=== PATIENT | male | born 1990 | race Caucasian/White ===

== ENCOUNTER → 2024-02-20 12:15 | Outpatient (REF) | payer BC, SELFPAY ==
[2024-02-20 16:19] LABS: % Basophils 1.3 % (0-2); % Eosinophils 3.7 % (0-6); % Immature Granulocytes 0.3 % (0-0.5); % Lymphocytes 31.3 % (20.5-51.1); % Monocytes 9.1 % (1.7-9.3); % Neutrophils 54.3 % (42.2-75.2); Absolute Basophils 0.1 10^3/uL (0-0.2); Absolute Eosinophils 0.2 10^3/uL (0-0.7); Absolute Lymphocytes 1.9 10^3/uL (1.2-3.4); Absolute Monocytes 0.5 10^3/uL (0.1-0.6); Absolute Neutrophils 3.2 10^3/uL (1.4-6.5); Hematocrit 39.1 % (39.0-52.0); Hemoglobin 12.7 g/dL (13.0-18.0); Mean Corp Hgb Conc. 32.5 g/dL (33.0-37.0); Mean Corpuscular Volume 89.3 fL (80.0-94.0); Mean Platelet Volume 10.3 fL (7.4-10.4); Nucleated Red Blood Cells % 0 % (-); Platelet Count 217 10^3/uL (130-400); Red Blood Cell Count 4.38 10^6/uL (4.70-6.10); Red Cell Dist. Width 14.6 % (11.5-14.5)
[2024-02-20 16:29] LABS: ALT (SGPT) 28 U/L (0-50); AST (SGOT) 30 U/L (17-59); Albumin 4.5 g/dl (3.5-5.0); Alkaline Phosphatase 57 U/L (38-126); Blood Urea Nitrogen 17 mg/dl (9-20); Calcium 9.5 mg/dl (8.4-10.2); Carbon Dioxide 30 mmol/L (22-30); Chloride 102 mmol/L (98-107); Glucose 90 mg/dl (70-99); HDL Cholesterol 63 mg/dl; LDL Cholesterol, Calculated 143 mg/dl; Potassium 4.3 mmol/L (3.5-5.1); Sodium 137 mmol/L (135-145); Total Bilirubin 0.5 mg/dl (0.2-1.3); Total Cholesterol 226 mg/dl (50-199); Triglyceride 100 mg/dl (10-149); Very Low Density Lipoprotein 20 mg/dl (0-30); eGFR > 60.00
[2024-02-20 17:00] LABS: TSH Reflex To Free T4 1.47 uIU/ml (0.47-4.68)
== END ==
LOC: HWLAB 12:15
PROVIDERS: ATTENDING PHYSICIAN Internal Medicine
DX: R53.83 Other fatigue (principal); Z00.01 Encounter for general adult medical examination with abnormal findings
CPT/HCPCS: 36415; 80053; 80061; 84443; 85025

== ENCOUNTER 2025-03-10 19:02 | Emergency (ER) | payer BC, SELFPAY ==
[2025-03-10 19:10] VITALS: BP 143/80
--- NOTE | 2025-03-10 22:32 | ED.GENMED ---
History of Present Illness
General
Chief Complaint: Rabies
Source: patient
Exam Limitations: none
Time Seen by Provider: 03/10/25 21:16
Nursing documentation reviewed up to this point in time: agreed with
History of Present Illness
History of Present Illness:
SEE mdm
Review of Systems
Review of Systems
Allergies reviewed?: Yes
All Other Systems: Not applicable
Phy Exam
Physical Exam
Physical Exam:
GENERAL: Alert , in no apparent distress
EYE: pupils equal and reactive
NECK: Supple
ENT: o/P MILD EERYTHEMA, mmm.
CARDIAC: Regular rate and rhythm .
LUNGS: Clear breath sounds bilaterally, no acute respiratory distress, no wheezes/rales/rhonchi
ABDOMEN: Soft, without focal tenderness, no r/g, no cvat, normal bowel sounds
NEUROLOGICAL: Alert and oriented, no focal neuro deficits
SKIN: Warm and dry, skin intact.
PSYCH: Normal and appropriate interaction.
Course
Orders/Labs/Results
Orders:
Orders
03/10/25 22:26
Rabies Immune Globulin/Pf [HyperRAB] 1,932 unit IM NOW STA
03/10/25 22:30
Rabies Vaccine (Pcec)/Pf [Rabavert Rabies Vacc W-Diluent] 2.5 unit IM .ONCE ONE
Vital Signs
Initial and Last Documented VS:
Initial Vital Signs
Temp Pulse Resp BP Pulse Ox
36.7 C 57 16 143/80 100
03/10/25 19:10 03/10/25 19:10 03/10/25 19:10 03/10/25 19:10 03/10/25 19:10
Last Documented Vital Signs
Temp Pulse Resp BP Pulse Ox
36.7 C 57 16 143/80 100
03/10/25 19:10 03/10/25 19:10 03/10/25 19:10 03/10/25 19:10 03/10/25 22:33
MDM/Problems Addressed
Differential Diagnosis Includes:
see mdm
MDM/Problems Addressed:
Note:
CHIEF COMPLAINT(S)
Potential rabies exposure.
HISTORY OF PRESENT ILLNESS
The patient is a 34-year-old male who presents with concerns of potential rabies exposure following an encounter with a bat in his bedroom. On two consecutive nights, the patient reports being awoken by unusual behavior from his cat at approximately
4:00 AM. On the second night, the patient discovered a bat in the bedroom. The patient states, 'I never made any contact with the bat,' but attempted to trap it using a trash can, during which the cat may have come into contact with the bat. The
patient released the bat outside without capturing it for testing.
The patient reports consulting with his primary care physician, who advised that he receive the rabies vaccination series as a precaution. The patient expressed anxiety about reading symptom lists online and acknowledged experiencing a 'minor cough'
but is aware of the delayed onset of rabies symptoms. There are no other medical problems or known chronic conditions reported.
PLAN
The patient will receive rabies post-exposure prophylaxis, consisting of human rabies immune globulin based on weight and the rabies vaccine series. The patient will return for follow-up vaccination on days three, seven, and fourteen at the wellness
or infusion center as prescribed.
DIFFERENTIAL DIAGNOSIS
The Differential Diagnosis includes, in no particular order and is not limited to:
1. Rabies exposure
2. Upper respiratory tract infection
3. Anxiety-related symptoms
4. Allergic reaction
5. Common cold
6. Seasonal allergies
7. Asthma
8. Viral pharyngitis
9. Influenza
10. Contact dermatitis or similar skin reactions
discussed that this is likely very low risk exposure but pt is nervous that his pcp told him to receive rabies
thus will initiate rabies series
also consider pt has early sypmtosm of viral URI with mild sore throat/cough
no fever
*Pulse Oximetry
SaO2: 100
Oxygen Mode of Delivery: Room air
Patient hypoxic: no (100)
*Critical Care Note
Total Time (30-74mins, 75-104mins- exclusive of procedures): Not Applicable
ED Attending Note
-
Portions of this chart may have been created with voice recognition software.� Occasional wrong word or��sound alike� substitutions may have occurred due to the inherent limitations of voice recognition software.
Discharge Plan
Departure
Patient Disposition: Home (Routine Discharge)
Date of Disposition: 03/10/25
Time of Disposition: 22:35
Patient with high blood pressure during this ER visit?: No
Condition: Fair
Covid-19: Not Applicable
Discharge Problem:
Rabies
Instructions: Rabies
Prescriptions:
New
rabies vacc,human diploid (PF) 2.5 unit recon soln
1 ml IM ONCE Qty: 3 0RF
Rx Instructions:
on 03/13, 03/17 and 03/24
Referrals:
Emmanuel Chance I., DO [Family Provider, Internal Medicine]
Stand Alone Forms: Rabies Vaccine Post Exp Dosing
Activity Restrictions/Additional Instructions:
RETURN TO THE INFUSION CENTER ON 03/13, 03/17, AND 03/24 FOR YOUR ADDITIONAL RABIES SERIES.
Interventions
Interventions:
*Risk Screen - Suicide Last Done: 03/10/25 22:13
*General Assessment Last Done: 03/10/25 22:13
*Neglect/Abuse Screening Last Done: 03/10/25 22:13
*ED- Fall Risk Assessment Last Done: 03/10/25 22:13
*ED COVID-19 Vaccine History Last Done: 03/10/25 22:13
*Nursing Disposition Last Done: 03/10/25 23:13
Discharge Date and Time
Discharge Date/Time: 03/10/25 23:13
Print Language: PASHTO
[2025-03-10] MEDS: RABAVERT RABIES VACC W-DILUENT 2.5 UNIT IM (22:51)
== END 2025-03-10 23:13 | disposition home or self-care (01) ==
LOC: EMR 19:02
PROVIDERS: EMERGENCY PHYSICIAN Emergency Medicine; FAMILY PHYSICIAN Internal Medicine
DX: Z20.3 Contact with and (suspected) exposure to rabies (principal); Z23 Encounter for immunization; Z29.14 Encounter for prophylactic rabies immune globulin
CPT/HCPCS: 99281; 90471; 96372; 90375; 90675

== ENCOUNTER 2025-03-24 08:23 | Outpatient (RCR) | payer BC, SELFPAY ==
[2025-03-13 08:42] VITALS: BP 133/73
[2025-03-13] MEDS: RABAVERT RABIES VACC W-DILUENT 2.5 UNIT IM (08:58)
[2025-03-17 08:35] VITALS: BP 119/82
[2025-03-17] MEDS: RABAVERT RABIES VACC W-DILUENT 2.5 UNIT IM (08:48)
[2025-03-24 08:30] VITALS: BP 116/76
[2025-03-24] MEDS: RABAVERT RABIES VACC W-DILUENT 2.5 UNIT IM (08:42)
== END 2025-03-25 08:55 | disposition home or self-care (01) ==
LOC: OID 08:23
PROVIDERS: ATTENDING PHYSICIAN Emergency Medicine; FAMILY PHYSICIAN Internal Medicine
DX: Z20.3 Contact with and (suspected) exposure to rabies (principal); Z23 Encounter for immunization
CPT/HCPCS: 90471; 90675